=== PATIENT | male | born 1960 | race Caucasian/White ===

== ENCOUNTER 2017-06-21 13:19 | Emergency (ER) | payer BC ==
--- NOTE | 2017-06-21 14:51 | EDM.PDOC ---
ED HPI GENERAL MEDICAL PROBLEM - General Chief Complaint: Upper Extremity Injury/Pain Stated Complaint: RT HAND NUMBNESS Time Seen by Provider: 06/21/17 13:30 Source of Information: Reports: Patient, Family History Limitations: Reports: No Limitations - History of Present Illness INITIAL COMMENTS - FREE TEXT/NARRATIVE: 57 years old w m came to the ed with his SO due to sudden onset of r arm numbness at noon. Pt went to his PMD who performed a focal neuro exam. did not find a focal weakness. He was sent to our ED. on arrival, pt c/o r 4+5th finger and hand numbness, no pain, no weakness. No N/V/D or dizziness. He drinks daily , does not take nay meds BP 149/79 Pulse 82 Temp 36.5 O2 sat 98% Onset: Today Onset Date: 06/21/17 Onset Time: 12:00 Duration: Hour(s):, Improving Location: Reports: Head, Upper Extremity, Right Quality: Reports: Other (numbn) Severity: Mild - Related Data Allergies Allergy/AdvReac Type Severity Reaction Status Date / Time No Known Allergies Allergy Verified 06/21/17 14:16 Home Meds: Home Meds NK [No Known Home Meds] 06/21/17 [History] Social & Family History - Family History Family Medical History: Noncontributory - Tobacco Use Smoking Status *Q: Never Smoker - Caffeine Use Caffeine Use: Reports: Coffee - Alcohol Use Days Per Week of Alcohol Use: 7 Number of Drinks Per Day: 2 Total Drinks Per Week: 14 - Recreational Drug Use Recreational Drug Use: No Review of Systems - Review of Systems Review Of Systems: See Below Constitutional: Reports: No Symptoms Eyes: Reports: No Symptoms Ears: Reports: No Symptoms Nose: Reports: No Symptoms Mouth/Throat: Reports: No Symptoms Respiratory: Reports: No Symptoms Cardiovascular: Reports: No Symptoms GI/Abdominal: Reports: No Symptoms Genitourinary: Reports: No Symptoms Musculoskeletal: Reports: No Symptoms Skin: Reports: No Symptoms Neurological: Reports: Numbness (right arm) Psychiatric: Reports: No Symptoms ED EXAM, GENERAL - Physical Exam Exam: See Below Exam Limited By: No Limitations General Appearance: Alert, WD/WN, No Apparent Distress Eye Exam: Bilateral Eye: Normal Inspection Ears: Normal External Exam Ear Exam: Bilateral Ear: Auricle Normal Nose: Normal Inspection Throat/Mouth: Normal Inspection Head: Atraumatic, Normocephalic Neck: Normal Inspection, Supple, Non-Tender Respiratory/Chest: No Respiratory Distress, Lungs Clear, Normal Breath Sounds Cardiovascular: Normal Peripheral Pulses, Regular Rate, Rhythm, No Edema, No Gallop, No JVD, No Murmur, No Rub GI/Abdominal: Normal Bowel Sounds, Soft, Non-Tender, No Organomegaly (Male) Exam: Deferred Rectal (Males) Exam: Deferred Back Exam: Normal Inspection, Full Range of Motion Extremities: Normal Inspection, Normal Range of Motion, Non-Tender, No Pedal Edema Neurological: Alert, Oriented, CN II-XII Intact, Normal Cognition, Normal Gait Psychiatric: Normal Affect, Normal Mood Skin Exam: Warm, Dry, Intact, Normal Color, No Rash, Cool, Cyanosis Lymphatic: No Adenopathy EKG INTERPRETATION EKG Date: 06/21/17 Time: 13:50 Rhythm: NSR Rate (Beats/Min): 77 [place]: Normal P-Wave: Present QRS: Normal ST-T: Normal QT: Normal Comparison: NA - No Prior EKG Course - Vital Signs Text/Narrative:: 57 years old w m came to the ed with his SO due to sudden onset of r arm numbness at noon. Pt went to his PMD who performed a focal neuro exam. did not find a focal weakness. He was sent to our ED. on arrival, pt c/o r 4+5th finger and hand numbness, no pain, no weakness. No N/V/D or dizziness. He drinks daily , does not take any meds BP 149/79 Pulse 82 Temp 36.5 O2 sat 98% PE: WNWD W M NAD Paresthesia r lat hand Imaging: MRI brain: 1 cm hypodensity left frontal lobe Labs: CBC, BMP INR 1.08 all nl UDS not tested Trop 0.01 ECG: NSR Impression: Hypodense lesion left frontal lobe with right hand numbness Borderline HTN 4.[address] Rico, Neurologist, [facility]: Needs to be further evaluated by the neurologist, admit to the Hospitalist. No meds until seen By Neurology. Meds not indicated for now. 4.[address] Sanchez, Hospitalist, [place], accepted the Pt for further care Plan: Transfer to [facility] by EMS, Pt and family agreed to transfer. Last Recorded V/S: Last Vital Signs Temp 36.6 C 06/21/17 13:30 Pulse 83 06/21/17 15:59 Resp 23 H 06/21/17 15:59 BP 129/65 06/21/17 15:59 Pulse Ox 99 06/21/17 15:59 - Orders/Labs/Meds Orders: Active Orders 24 hr Category Date Time Status Brain w wo Cont [MR] Stat Exams 06/21/17 14:52 Taken Cervical Spine Comp wo Cont [MR] Stat Exams 06/21/17 14:35 Taken Saline Lock Insert [OM.PC] Routine Oth 06/21/17 16:42 Ordered EKG 12 Lead [EK] Routine Ther 06/21/17 13:31 Ordered Labs: Laboratory Tests 06/21/17 06/21/17 06/21/17 Range/Units 13:45 13:45 13:45 WBC 7.7 (4.5-12.0) X10-3/uL RBC 5.13 (4.30-5.75) x10(6)uL Hgb 15.2 (11.5-15.5) g/dL Hct 45.1 (30.0-51.3) % MCV 87.8 (80-96) fL MCH 29.7 (27.7-33.6) pg MCHC 33.8 (32.2-35.4) g/dL RDW 12.3 (11.5-15.5) % Plt Count 349 (125-369) X10(3)uL MPV 7.7 (7.4-10.4) fL Neut % (Auto) 70.5 (46-82) % Lymph % (Auto) 19.8 (13-37) % [place] % (Auto) 8.8 (4-12) % Eos % (Auto) 1 (1.0-5.0) % Baso % (Auto) 0 (0-2) % Neut # (Auto) 5.4 (1.6-8.3) # Lymph # (Auto) 1.5 (0.6-5.0) # [place] # (Auto) 0.7 (0.0-1.3) # Eos # (Auto) 0.0 (0.0-0.8) # Baso # (Auto) 0.0 (0.0-0.2) # PT 10.8 (8.7-11.1) INR 1.07 (0.89-1.13) Sodium 139 (135-145) mmol/L Potassium 4.1 (3.5-5.3) mmol/L Chloride 104 (100-110) mmol/L Carbon Dioxide 26 (23-29) mmol/L BUN 18 (5-20) mg/dL Creatinine 1.2 (0.6-1.3) mg/dL Est Cr Clr Drug Dosing TNP Estimated GFR (MDRD) > 60 (>60) BUN/Creatinine Ratio 15.0 (9-20) Glucose 116 (80-116) mg/dL Calcium 9.1 (8.6-10.2) mg/dL Creatine Kinase (60-160) IU/L Troponin I (0.02-0.06) NG/ML 06/21/17 06/21/17 Range/Units 13:45 13:45 WBC (4.5-12.0) X10-3/uL RBC (4.30-5.75) x10(6)uL Hgb (11.5-15.5) g/dL Hct (30.0-51.3) % MCV (80-96) fL MCH (27.7-33.6) pg MCHC (32.2-35.4) g/dL RDW (11.5-15.5) % Plt Count (125-369) X10(3)uL MPV (7.4-10.4) fL Neut % (Auto) (46-82) % Lymph % (Auto) (13-37) % [place] % (Auto) (4-12) % Eos % (Auto) (1.0-5.0) % Baso % (Auto) (0-2) % Neut # (Auto) (1.6-8.3) # Lymph # (Auto) (0.6-5.0) # [place] # (Auto) (0.0-1.3) # Eos # (Auto) (0.0-0.8) # Baso # (Auto) (0.0-0.2) # PT (8.7-11.1) INR (0.89-1.13) Sodium (135-145) mmol/L Potassium (3.5-5.3) mmol/L Chloride (100-110) mmol/L Carbon Dioxide (23-29) mmol/L BUN (5-20) mg/dL Creatinine (0.6-1.3) mg/dL Est Cr Clr Drug Dosing Estimated GFR (MDRD) (>60) BUN/Creatinine Ratio (9-20) Glucose (80-116) mg/dL Calcium (8.6-10.2) mg/dL Creatine Kinase 83 (60-160) IU/L Troponin I < 0.01 L (0.02-0.06) NG/ML Meds: Medications Discontinued Medications Generic Name Dose Route Start Last Admin Trade Name Freq PRN Reason Stop Dose Admin Gadobutrol 7.5 ml 06/21/17 15:15 06/21/17 15:42 Gadavist IV 7.5 ml . DIRECTED SHERRILL Administration Sodium Chloride 10 ml 06/21/17 16:42 Saline Flush FLUSH ASDIRECTED PRN Keep Vein Open Departure - Departure Time of Disposition: 16:29 Disposition: DC/Tfer to [facility] Condition: Fair Clinical Impression: Paresthesia of arm CVA (cerebral vascular accident) Qualifiers: CVA mechanism: unspecified Qualified Code(s): I63.9 - Cerebral infarction, unspecified - Discharge Information Referrals: PCP,None [Primary Care Provider] - Forms: ED Department Discharge Additional Instructions: Your MRI results should be back in 3-4 hours, as requested, you will be discharged to home, please call in 3-4 hours for the test results. If the test results come back before 7 pm, i will call you at home. You can f/u with your doctor as well. Please come back to the ed if your symptoms get acutely worse. - My Orders Last 24 Hours: My Active Orders 06/21/17 13:31 EKG 12 Lead [EK] Routine 06/21/17 14:35 Cervical Spine Comp wo Cont [MR] Stat 06/21/17 14:52 Brain w wo Cont [MR] Stat 06/21/17 16:42 Saline Lock Insert [OM.PC] Routine - Assessment/Plan Last 24 Hours: My Active Orders 06/21/17 13:31 EKG 12 Lead [EK] Routine 06/21/17 14:35 Cervical Spine Comp wo Cont [MR] Stat 06/21/17 14:52 Brain w wo Cont [MR] Stat 06/21/17 16:42 Saline Lock Insert [OM.PC] Routine
[2017-06-21] MEDS ORDERED: Gadobutrol 7.5 mMOL/7.5 ML SDV IV SCH (15:15)
[2017-06-21] MEDS ORDERED: Sodium Chloride 0.9% 10 ML Syringe FLUSH PRN (16:42)
== END 2017-06-21 16:45 | disposition critical access hospital (66) ==
LOC: FB.ED 13:19
DX: I63.9 Cerebral infarction, unspecified (principal); I10 Essential (primary) hypertension
CPT/HCPCS: 36415; 70553; 72141; 80048; 82550; 84484; 85025; 85610; 93005; 99284; A9585